=== PATIENT | female | born 1955 | race Caucasian/White ===

== ENCOUNTER 2017-04-18 09:15 | Emergency (ER) | payer BC ==
[~2017-04-18] VITALS: Ht 160 cm; Wt 68.4 kg
[~2017-04-18 09:15] MED LIST: CLONAZEPAM1 MG PO; CORTEF10 MG PO; CYMBALTA60 MG PO; DAILY VALUE1 EACH PO; DULOXETINE HCL60 MG PO; ELAVIL50 MG PO; GLUCOSAMINE &1 EACH PO; HYDROCORTISONE20 MG PO; LAMOTRIGINE100 MG PO; LAMOTRIGINE150 MG PO; LEVETIRACETAM500 MG PO; LIDODERM 5% P1 PATCH TD; LYRICA150 MG PO; LYRICA75 MG PO; MELOXICAM7.5 MG PO; MOBIC7.5 MG PO; REQUIP4 MG PO; ROPINIROLE HCL4 MG PO; SPIRONOLACTONE100 MG PO; TYLENOL EXTRA500 MG PO; ULTRAM ER300 MG PO; ULTRAM50 MG PO; VAPOR INHALER50 MG BOTH NARES; ZYVOX600 MG PO
[2017-04-18 09:24] VITALS: BP 144/81
[2017-04-18] MEDS ORDERED: LYRICA150 MG PO (09:28)
[2017-04-18] MEDS ORDERED: MELOXICAM7.5 MG PO (09:29)
== END 2017-04-18 12:01 | disposition home or self-care (01) ==
LOC: EME → EDBD 09:15 → EME 09:15
DX: S40.012A Contusion of left shoulder, initial encounter (principal); S60.212A Contusion of left wrist, initial encounter; W01.0XXA Fall on same level from slipping, tripping and stumbling without subsequent striking against object, initial encounter; Y93.H2 Activity, gardening and landscaping; Z98.1 Arthrodesis status
CPT/HCPCS: 73030; 73110; 99281; 99284; J1885